=== PATIENT | female | born 1960 | race African-American/Black ===

== ENCOUNTER 2020-02-02 10:15 | Outpatient (CLI) | payer OTHER ==
[~2020-02-02 10:15] MED LIST: FEROSUL PO; METFORMIN HCL500 MG PO; METOPROLOL SUCC50 MG PO; METROPOLOL PO; NABUMETONE500 MG PO; ONGLYZA5 MG PO; PERCOCET 5/3251 TAB PO
== END 2020-02-02 10:54 | disposition home or self-care (01) ==
LOC: SONOGRAMA 10:15 → MAMO-SONO 10:45 → SONOGRAMA 10:54
PROVIDERS: ATTEND Orthopaedic Surgery
DX: M25.512 Pain in left shoulder (principal)

== ENCOUNTER 2020-10-25 08:27 | Outpatient (CLI) | payer OTHER | END 2020-10-25 08:38 | disposition home or self-care (01) | LOC: MRI 08:27 | PROVIDERS: ATTEND Orthopaedic Surgery | DX: M75.121 Complete rotator cuff tear or rupture of right shoulder, not specified as traumatic (principal) | CPT/HCPCS: 73221 ==

== ENCOUNTER 2021-09-11 08:00 | Outpatient (CLI) | payer OTHER | END 2021-09-11 08:30 | disposition home or self-care (01) | LOC: PPH VACUNA 08:00 | PROVIDERS: ATTEND Emergency Medicine Pediatric Emergency Medicine | DX: Z23 Encounter for immunization (principal) ==

== ENCOUNTER 2022-02-18 07:58 | Outpatient (CLI) | payer OTHER | END 2022-02-18 08:18 | disposition home or self-care (01) | LOC: MAMO-SONO 07:58 | PROVIDERS: ATTEND General Practice | DX: Z12.31 Encounter for screening mammogram for malignant neoplasm of breast (principal) ==

== ENCOUNTER 2022-11-11 08:17 | Outpatient (CLI) | payer OTHER | END 2022-11-11 08:27 | disposition home or self-care (01) | LOC: RAD 08:17 | PROVIDERS: ATTEND Orthopaedic Surgery | DX: M25.512 Pain in left shoulder (principal) ==

== ENCOUNTER 2023-01-14 09:16 | Outpatient (CLI) | payer OTHER | END 2023-01-14 09:29 | disposition home or self-care (01) | LOC: MRI 09:16 → TOM 09:16 → MRI 09:29 | PROVIDERS: ATTEND Orthopaedic Surgery | DX: S83.201A Bucket-handle tear of unspecified meniscus, current injury, left knee, initial encounter (principal); M25.512 Pain in left shoulder | CPT/HCPCS: 73221; 73721 ==

== ENCOUNTER 2023-08-23 21:39 | Emergency (ER) | payer OTHER ==
[~2023-08-23] VITALS: Ht 154.9 cm; Wt 72.6 kg
[2023-08-23] MEDS ORDERED: COZAAR25 MG PO (21:55)
[2023-08-24] MEDS ORDERED: DEXAMETHASONE SODIUM PHOSPHATE 4 MG/ML VIAL IM ONE (00:30)
[2023-08-24] MEDS ORDERED: CEFTRIAXONE SODIUM 1,000 MG VIAL IM ONE (00:30)
[2023-08-24] MEDS ORDERED: MECLIZINE HCL 25 MG TABLET PO ONE (00:30)
[2023-08-24] MEDS ORDERED: AMOX-CLAV 875-1 EACH PO (00:31)
[2023-08-24] MEDS ORDERED: ANTIVERT25 M2 PO (00:31)
== END 2023-08-24 00:39 | disposition home or self-care (01) ==
LOC: ER 21:39
DX: H66.90 Otitis media, unspecified, unspecified ear (principal)

== ENCOUNTER 2024-06-30 08:41 | Outpatient (CLI) | payer OTHER ==
[~2024-06-30 08:41] MED LIST changes: +AMOX-CLAV 875-1 EACH PO; +ANTIVERT25 M2 PO; +COZAAR25 MG PO
== END 2024-06-30 08:45 | disposition home or self-care (01) ==
LOC: SONOGRAMA 08:41
PROVIDERS: ATTEND Physical Medicine & Rehabilitation Hospice and Palliative Medicine
DX: M77.12 Lateral epicondylitis, left elbow (principal)

== ENCOUNTER 2024-11-23 05:56 | Day surgery (SDC) | payer OTHER ==
[2024-11-17 09:41] LABS: BASO % 0.3 % (0.1-1.2); EOS # 0.20 (0.04-0.54); EOS % 1.8 % (0.7-7.0); LYMPH # 2.28 (1.18-3.74); LYMPH % 20.6 % (19.3-53.1); MEAN PLATELET VOLUME 10.70 fl (9.4-12.4); MONO # 0.80 (0.24-0.82); MONO % 7.2 % (4.7-12.5); NEUT # 7.75 (1.56-6.13); NEUT % 69.8 % (34.0-71.1); RED CELL DISTRIBUTION WIDTH 13.3 % (11.6-14.4)
[2024-11-17 09:54] LABS: URINE APPEARANCE Clear; URINE BILIRRUBIN Negative (NEGATIVE); URINE BLOOD Negative; URINE COLOR Yellow; URINE KETONE Trace (NEGATIVE); URINE LEUKOCYTE Negative; URINE NITRATE Negative; URINE PROTEIN Negative (NEGATIVE); URINE UROBILINOGEN 0.2 E.U./dl
[2024-11-17 09:56] VITALS: BP 160/70
[2024-11-17 09:58] LABS: URINE BACTERIA 254.5 uL (0.0-1933); URINE EPITHELIAL CELLS 21.8 uL (0.0-38.8); URINE RBC 20.9 uL (0.0-20.8); URINE WBC 9.1 uL (0.0-23.2)
[2024-11-17 10:06] LABS: INR 1.05
[2024-11-17 10:22] LABS: URINE CAST 0.00 uL (0.0-1.40); URINE GLUCOSE >=1000 MG/DL (NEGATIVE)
[2024-11-17 10:37] LABS: ALT/SGPT 29.0 U/L (12-78); AST/SGOT 16.0 U/L (15-37); BILIRUBIN TOTAL 0.42 mg/dL (0.3-1.2); BUN CREA RATIO 21.0 (7.0-25.0); CREATININE SERUM 0.61 mg/dL (0.55-1.02); GFR 99.06; GLOBULINA 3.3 G/DL (2.4-3.5); GLUCOSE FASTING 136.0 mg/dL (65-100); OSMOLALITY SERUM 283.0 MOSM/KG (275-295)
[~2024-11-23] VITALS: Ht 154.9 cm; Wt 73.5 kg
[2024-11-23] MEDS ORDERED: CEFAZOLIN SODIUM 1,000 MG VIAL IV ONE (09:45)
== END 2024-11-23 13:45 | disposition home or self-care (01) ==
LOC: CIR.AMB 05:56
PROVIDERS: ATTEND Orthopaedic Surgery Hand Surgery
DX: M77.12 Lateral epicondylitis, left elbow (principal); Z88.6 Allergy status to analgesic agent

== ENCOUNTER 2025-05-12 08:50 | Outpatient (CLI) | payer OTHER | END 2025-05-12 08:51 | disposition home or self-care (01) | LOC: NUCLEAR 08:50 | DX: M81.0 Age-related osteoporosis without current pathological fracture (principal) ==